=== PATIENT | female | born 1950 ===

== ENCOUNTER 2022-10-19 05:56 | Day surgery (SDC) | payer OTHER ==
[~2022-10-19 05:56] MED LIST: COZAAR50 MG PO; LOPRESSOR25 MG PO
== END 2022-10-19 13:45 | disposition home or self-care (01) ==
LOC: CIR.AMB 05:56
PROVIDERS: ATTEND Urology
DX: D41.4 Neoplasm of uncertain behavior of bladder (principal); C67.9 Malignant neoplasm of bladder, unspecified; Z20.822 Contact with and (suspected) exposure to COVID-19; I10 Essential (primary) hypertension